=== PATIENT | female | born 1935 | race Caucasian/White ===

== ENCOUNTER → 2017-05-24 | Day surgery (SDC) | payer MEDICARE ==
[~2017-05-24] MED LIST: ACETAMINOPHEN 325 MG TAB ONE; APREPITANT 40 MG CAP ONE; BUPIVACAINE HCL PF 0.5% 10 ML VIAL ONE; BUPIVACAINE/EPINEPHRINE 0.5% PF 10 ML VIAL ONE; LACTATED RINGER'S 1000 ML INJ 1,000 ML ONE; MIDAZOLAM HCL 2 MG/2 ML VIAL ONE; ONDANSETRON HCL 4 MG/2 ML VIAL ONE; PROPOFOL 200 MG/20 ML AMP IV ONE; ceFAZolin 2 GM PREMIX 50 ML ONE
--- NOTE | 2017-05-24 12:13 | TN ---
cc: NANETTE MEDEIROS DATE OF SURGERY: 05/24/2017 PRINCIPAL DIAGNOSIS Right supraclavicular mass. POSTOPERATIVE DIAGNOSIS Right supraclavicular mass with lipoma. PROCEDURE PERFORMED Excision of right supraclavicular mass. SURGEON Nanette Medeiros MD. ANESTHESIA General via LMA device. INDICATION The patient is an 82-year-old female with a slowly enlarging soft right supraclavicular mass. On clinical exam it is consistent with a lipoma but it is symptomatic and she desires excision. FINDINGS AT SURGERY A large supraclavicular lipoma approximately 4 cm in size was identified extending beneath the trapezius muscle. PROCEDURE PERFORMED After informed consent was obtained and site verification was performed, the patient was brought to the major operating room where she underwent general anesthesia via LMA device. She was given a single dose of IV Ancef and sequential compression hose were placed. The right shoulder area was prepped and draped in sterile fashion. A transverse incision was anesthetized and incised sharply and blunt dissection was then performed until the lipoma was clearly visible. Electrocautery was used to divide overlying muscle fibers and then gentle circumferential blunt dissection was then performed around the lipoma until it had been delivered up into the wound. The base was amputated using electrocautery and it was sent for permanent pathologic evaluation. Good hemostasis was noted and the wound was closed using interrupted 3-0 Vicryl subcutaneous sutures and a 4-0 Monocryl subcuticular suture. Steri-Strips and sterile dressing were applied. The patient tolerated the procedure well and was brought to recovery room in good condition. All sponge and needle counts were correct at the conclusion of the case. MD NGUYEN Hemphill/rufino /11:22 AM /11:36 AM
== END | disposition home or self-care (01) ==
LOC: ESDC 08:53
PROVIDERS: ATTEND Surgery
DX: D17.1 Benign lipomatous neoplasm of skin and subcutaneous tissue of trunk (principal)
CPT/HCPCS: 00400; 21552; 88304; J0690; J2250; J2405; J3010; J7120; J8501